=== PATIENT | male | born 2000 | race Two or more races ===

== ENCOUNTER 2024-11-05 17:17 | Inpatient (IN) | payer MEDICAID, OTHER ==
[~2024-11-05] VITALS: Ht 165.1 cm; Wt 101.0 kg
[2024-11-05 18:10] LABS: Hematocrit 46.3 % (41.0-53.0); Hemoglobin 16.2 g/dL (13.5-17.5); Mean Corpuscular Hemoglobin 30.1 pg (28.0-32.0); Mean Corpuscular Volume 86.1 fL (80.0-100.0); Nucleated Red Blood Cells % 0.0 %
[2024-11-05 18:24] LABS: Urine Protein, UAD Negative (Negative)
[2024-11-05 18:25] LABS: Chloride 102 mmol/L (98-107); Potassium 3.9 mmol/L (3.5-5.1); Sodium 137 mmol/L (136-145)
[2024-11-05 18:26] LABS: Anion Gap 13 (5-15); Calcium 9.3 mg/dL (8.7-10.4); Carbon Dioxide 22 mmol/L (20-31)
[2024-11-05 18:31] LABS: BUN/Creatinine Ratio 9.5 (10.0-20.0)
[2024-11-05 18:32] LABS: Blood Urea Nitrogen 7 mg/dL (9-23); Glucose 274 mg/dL (74-106)
--- NOTE | 2024-11-05 18:52 | ED.PDOC ---
GI ASSESSMENT HPI Comments This is a 24 year-old male who presents to the ED with a chief complaint of RLQ abdominal pain with associated nausea, mild dysuria and constipation as of today. Patient reports abdominal pain as "sharp", intermittent, with an increase of abdominal pain upon movement and with urination. Patient otherwise denies further associated symptoms of fever, hematuria, frequency, urgency, blood streaked stool, or emesis. Patient has no further complaints or modifying factors at this time. Chief Complaint: Flank Pain Time Seen by MD: 18:46 Reviewed Notes: Nurses Notes, Medications, Allergies Allergies: Coded Allergies: NO KNOWN ALLERGIES (Unverified , 11/05/24) Information Source: Patient Mode of Arrival: Ambulatory Timing: Hours Duration: Since onset Prehospital treatment: None Severity: Moderate Pain Location: RLQ Associated sign and symptoms: Nausea, Diarrhea, Constipation, Abdominal Pain Past Medical History PAST MEDICAL HISTORY: DM Surgical History: Denies all surgeries Family History Family History: Reviewed,noncontributory to illness, No family hx of Cancer, No family hx of DM, No family hx of Heart alta, No family hx of HTN, No family hx ofKidney alta, No family hx of Liver alta, No family hx of Lung alta, No family hx of Stroke Social History Smoker: Non-Smoker Alcohol: Denies ETOH Use Drugs: Denies Drug Use Lives In: Home Constitutional: denies: chills, diaphoresis, fatigue, fever, malaise, sweats, weakness, others EENTM: denies: blurred vision, double vision, ear bleeding, ear discharge, ear drainage, ear pain, ear ringing, eye pain, eye redness, hearing loss, mouth pain, mouth swelling, nasal discharge, nose bleeding, nose congestion, nose pain, photophobia, tearing, throat pain, throat swelling, voice changes, others Respiratory: denies: cough, hemoptysis, orthopnea, SOB at rest, shortness of breath, SOB with excertion, stridor, wheezing, others Cardiovascular: denies: chest pain, dizzy spells, diaphoresis, Dyspnea on exertion, edema, irregular heart beat, left arm pain, lightheadedness, palpitations, PND, syncope, others Gastrointestinal: reports: abdominal pain, constipated, diarrhea, nausea; denies: abdomen distended, blood streaked bowels, dysphagia, difficulty swallowing, hematemesis, melena, poor appetite, poor fluid intake, rectal bleeding, rectal pain, vomiting, others Genitourinary: denies: burning, dysuria, flank pain, frequency, hematuria, incontinence, penile discharge, penile sore, pain, testicle pain, testicle swelling, urgency, others Neurological: denies: dizziness, fainting, headache, left sided numbness, left sided weakness, numbness, paresthesia, pre-existing deficit, right sided numbness, right sided weakness, seizure, speech problems, tingling, tremors, weakness, others Musculoskeletal: denies: back pain, gout, joint pain, joint swelling, muscle pain, muscle stiffness, neck pain, others Integumetry: denies: bruises, change in color, change in hair/nails, dryness, laceration, lesions, lumps, rash, wounds, others Allergic/Immunocompromised: denies: Difficulty Healing, Frequent Infections, Hives, Itching, others Hematologic/Lymphatic: denies: anemia, blood clots, easy bleeding, easy bruising, swollen glands, others Endocrine: denies: excessive hunger, excessive sweating, excessive thirst, excessive urination, flushing, intolerance to cold, intolerance to heat, unexplained weight gain, unexplained weight loss, others Psychiatric: denies: anxiety, bipolar disorder, depression, hopeless, panic disorder, schizophrenia, sleepless, suicidal, others All Other Systems: Reviewed and Negative Physical Exam General Appearance: Mild Distress, Obese HEENT: Other (Pupils and face symmetric. Moist mucous membranes.) Neck: Full Range of Motion, Normal Inspection Respiratory: Lungs Clear, No Accessory Muscle Use, No Respiratory Distress, Normal Breath Sounds Cardiovascular: No Edema, No JVD, Regular Rate/Rhythm Breast Exam: Deferred Gastrointestinal: RLQ, Soft, Tenderness Genitalia: Deferred Pelvic: Deferred Rectal: Deferred Extremities: Normal inspection, Normal range of motion, Non-tender, No pedal ed douglas Neurologic: Alert (Oriented x4), Normal Affect, Normal Mood, Other (Ambulatory) Cerebellar Function: NOT DONE Reflexes: NOT DONE Skin: Dry, Normal Color, Warm Lymphatic: NOT DONE Was a procedure done? Was a procedure done?: No GI differential Dx Differential Diagnosis: Appendicitis, Diverticular disease, Gastritis/PUD, Gastroenteritis, Inflammatory BD, UTI, Urolithiasis, Electrolyte Imbalance, Food Poisoning, Bacterial, Viral, Kidney Stone, Other (Epiploic appendagitis, among others) X-Ray, Labs, Meds, VS Vital Signs Date Time Temp Pulse Resp B/P (MAP) Pulse Ox O2 Delivery O2 Flow Rate FiO2 11/05/24 17:19 99.6 123 18 143/90 96 99.6 Lab Test 11/05/24 17:58 11/05/24 17:40 Range/Units White Blood Count 13.9 H 4.4-10.8 10^3/uL Red Blood Count 5.38 4.5-5.90 10^6/uL Hemoglobin 16.2 13.5-17.5 g/dL Hematocrit 46.3 41.0-53.0 % Mean Corpuscular Volume 86.1 80.0-100.0 fL Mean Corpuscular Hemoglobin 30.1 28.0-32.0 pg Mean Corpuscular Hemoglobin Concent 35.0 32.0-36.0 g/dL Red Cell Distribution Width 13.6 11.8-14.3 % Platelet Count 236 140-450 10^3/uL Mean Platelet Volume 9.2 6.9-10.8 fL Neutrophils (%) (Auto) 83.7 H 37.0-80.0 % Lymphocytes (%) (Auto) 9.7 L 10.0-50.0 % Monocytes (%) (Auto) 6.1 0.0-12.0 % Eosinophils (%) (Auto) 0.1 0.0-7.0 % Basophils (%) (Auto) 0.4 0.0-2.0 % Neutrophils # (Auto) 11.7 H 1.6-8.6 10 ^3/uL Lymphocytes # (Auto) 1.4 0.4-5.4 10 ^3/uL Monocytes # (Auto) 0.8 0-1.3 10 ^3/uL Eosinophils # (Auto) 0 0-0.8 10 ^3/uL Basophils # (Auto) 0.1 0-0.2 10 ^3/uL Nucleated Red Blood Cells 0.0 % Sodium Level 137 136-145 mmol/L Potassium Level 3.9 3.5-5.1 mmol/L Chloride Level 102 98-107 mmol/L Carbon Dioxide Level 22 20-31 mmol/L Anion Gap 13 5-15 Blood Urea Nitrogen 7 L 9-23 mg/dL Creatinine 0.74 0.700-1.30 mg/dL Glomerular Filtration Rate Calc 128 >90 mL/min BUN/Creatinine Ratio 9.5 L 10.0-20.0 Serum Glucose 274 H 74-106 mg/dL Calcium Level 9.3 8.7-10.4 mg/dL Urine Color Light-yellow Yellow Urine Clarity Clear Clear Urine pH 5.5 5.0-9.0 Urine Specific [place] 1.044 H 1.001-1.035 Urine Protein Negative Negative Urine Ketones 3+ H Negative Urine Blood Negative Negative /uL Urine Nitrite Negative Negative Urine Bilirubin Negative Negative Urine Urobilinogen Normal Negative mg/dL Urine Leukocyte Esterase Negative Negative /uL Urine RBC 5 0 - 3 /hpf Urine Microscopic WBC 1 0-3 /HPF Urine Squamous Epithelial Cells Few <5 /hpf Urine Bacteria None seen None Seen /hpf Urine Glucose 4+ H Normal mg/dL ORDERING PHYSICIAN: LJ SAMUELS MD PROCEDURE(s): ABPL - CT AB PEL WO CON-NO ORAL OR IV REASON: L flank pain rad to LLQ ORDER NUMBER(s): [id number], ACCESSION NUMBER(s): [id number] ADDENDUM ADDENDUM # 1 IMPRESSION: 1. The inflammatory changes in the right lower quadrant may be consistent with acute appendicitis. There are no findings of free air or free fluid. The appendix is not visualized at this time. Please correlate with clinical setting. ORIGINAL REPORT Exam: CT CT AB PEL WO CON-NO ORAL OR IV History: L flank pain rad to LLQ Comparison Study: None TECHNIQUE: Multidetector CT of the abdomen was performed from lung bases to pubic symphysis. Imaging was performed without IV contrast. Axial, coronal and sagittal multiplanar reformats were obtained from the axial data set by the technologist. Radiation Dose Information: CT Dose: CTDI volume is 21.16 mGy. Dose-length product is 1239.55 mGy*cm FINDINGS: Evaluation of solid organs is limited due to lack of intravenous contrast use. Findings: Lung Bases: No acute or significant lung base finding. Normal heart size. No pleural or pericardial effusion. Liver: The liver is normal in size. No focal lesions. Gallbladder and Biliary Tree: Unremarkable Spleen: Unremarkable Pancreas: The pancreas is grossly normal in appearance. Adrenal Glands: Unremarkable Kidneys: Kidneys are grossly normal without calculi or hydronephrosis. Bladder: Grossly unremarkable for degree of distention. Bowel: The stomach is grossly normal in appearance. Small bowel and colon are normal in caliber and distribution. There appears to be inflammatory stranding in the mesenteric fat just to the right of midline series 601 images 47- 52. Series 602 images 39- series 2 images 58- 69. The appendix is not visualized; however, no secondary findings of acute appendicitis identified. Ascites: Absent Lymphadenopathy: No mesenteric, retroperitoneal or periportal lymphadenopathy. Abdominal Wall and Mesentery: Unremarkable. Vasculature: The visualized abdominal aorta is normal in size and caliber. Evaluation of abdominal and pelvic vessels is limited due to lack of intravenous contrast. Pelvic Organs: Unremarkable Musculoskeletal: No aggressive focal bony lesions, acute fractures or dislocation. Soft tissues: Unremarkable IMPRESSION: 1. No nephrolithiasis or hydronephrosis. 2. Inflammatory changes just to the right of midline in the pelvis, refer to following series of images: series 601 images 47- 5Series 602 images 39- series 2 images 58- 69. Since these findings are not related patient's side of symptomatology significance is uncertain. A follow-up studies recommended. This could represent a epiploic appendagitis. 3. Bladder contains urine but no calculi. There is bladder wall thickening benja cially superiorly which point measures 12-13 mm in thickness. Bladder wall also measures 12-13 mm on the right. Overall bladder dimensions are 8.4 x 7.2 by 9.2 cm in transverse dimension. Bladder wall thickening may be secondary to or urinary distention infection. Neoplasm is also a possibility although unlikely in this age group. Please correlate with urinalysis. Radiation optimization: All CT scans at this facility use at least one of these dose optimization techniques: automated exposure control mA and/or kV adjustment per patient size (includes targeted exams where dose is matched to clinical indication) or iterative reconstruction. X-Ray, Labs, Meds, VS Comment 24-year-old male with a history of diabetes complaining of right lower quadrant pain, nausea and dysuria Vitals remarkable for temperature 99.6, heart rate 123, BP 143/90 Exam remarkable for right lower quadrant tenderness to percussion and palpation Rhythm strip independently interpreted by me: Sinus tach, rate 123, no ectopy. CT abdomen and pelvis IMPRESSION: 1. The inflammatory changes in the right lower quadrant may be consistent with acute appendicitis. There are no findings of free air or free fluid. The appendix is not visualized at this time. Please correlate with clinical setting. CBC remarkable for WBC 13.9, basic metabolic panel remarkable for glucose 274, UA 3+ ketones and 4+ glucose, otherwise unremarkable Patient treated with the following in the ED: 2 L 0.9 normal saline IV bolus, morphine 4 mg IV, Zofran 4 mg IV, Zosyn 4.5 g IV, placed NPO On re-evaluation, pain has improved. Vitals were stable. Case was discussed with Dr. Giles, who will consult. Plan is to admit the patient for IV antibiotics and surgical evaluation of possible early appendicitis. Images Reviewed?: Images reviewed and evaluated by me Time of 1ST Reevaluation: 19:35 Reevaluation 1ST: Unchanged Patient Education/Counseling: Diagnosis, Treatment, Need For Follow Up Family Education/Counseling: No Family Present Medical Screening: No EMC Exist At This Time SEPSIS Sepsis Screen Date sepsis recognized/suspect: Nov 05, 2024 Time Sepsis recognized/suspect: 9 Recent Procedure: No On Antibiotic Therapy: No Respiratory Rate >20: No Heart Rate >90: Yes Temp<36 C (96.8 F) or >38.3 C: No SBP <90 or MAP <65 mmHG: No New Acute Mental Status Change: No Is the patient on CPAP, BIPAP,: No SEPSIS EXCLUSION NOTE: Sepsis Exclusion Note: Patient presents with SIRS criteria, but the SIRS response is attributed to [pain ], not sepsis. Sepsis bundle is not initiated at this time, due to this reason. Further management will focus on the treatment of the above condition (s). Physician Orders Ct Ab Pel Wo Con-No Oral Or Iv (11/05/24 17:48) Sodium Chloride 0.9% (11/05/24 21:00) Piperacillin-Tazo 4.5gm (Zosyn 4.5gm/100 (11/05/24 21:00) Npo (Nothing By Mouth) Diet (11/06/24 Breakfast) Vital Signs Date Time Temp Pulse Resp B/P (MAP) Pulse Ox O2 Delivery O2 Flow Rate FiO2 11/05/24 17:19 99.6 123 18 143/90 96 99.6 Laboratory Tests Test 11/05/24 17:58 White Blood Count 13.9 10^3/uL (4.4-10.8) H Departure 1 Departure Time of Disposition: 21:00 Impression: Primary Impression: Right lower quadrant abdominal pain Disposition: ADMITTED INPATIENT Admit to: Med Surg Condition: Guarded Critical Care Note Critical Care Time?: No Stability Stability form required: No Heart Score Heart Score: Heart Score Response (Comments) Value History N/A 0 EKG N/A 0 Age N/A 0 Risk Factors N/A 0 Troponin N/A 0 Total 0 I personally scribed for LJ SAMUELS MD ([email or web address]) on 11/05/24 at 18:52. Electronically submitted by Maki Haider ([employer]). I personally scribed for LJ SAMUELS MD ([email or web address]) on 11/05/24 at 18:53. Electronically submitted by Maki Haider ([employer]). I personally scribed for LJ SAMUELS MD ([email or web address]) on 11/05/24 at 19:27. Electronically submitted by Maki aHider ([email or web address]). LJ SAMUELS MD Nov 05, 2024 18:52
--- NOTE | 2024-11-05 19:06 | DVH ---
Exam: CT CT AB PEL WO CON-NO ORAL OR IV History: L flank pain rad to LLQ Comparison Study: None TECHNIQUE: Multidetector CT of the abdomen was performed from lung bases to pubic symphysis. Imaging was performed without IV contrast. Axial, coronal and sagittal multiplanar reformats were obtained fr om the axial data set by the technologist. Radiation Dose Information: CT Dose: CTDI volume is 21.16 mGy. Dose-length product is 1239.55 mGy*cm FINDINGS: Evaluation of solid organs is limited due to lack of intravenous contrast use. Findings: Lung Bases: No acute or significant lung base finding. Normal heart size. No pleural or pericardial effusion. Liver: The liver is normal in size. No focal lesions. Gallbladder and Biliary Tree: Unremarkable Spleen: Unremarkable Pancreas: The pancreas is grossly normal in appearance. Adrenal Glands: Unremarkable Kidneys: Kidneys are grossly normal without calculi or hydronephrosis. Bladder: Grossly unremarkable for degree of distention. Bowel: The stomach is grossly normal in appearance. Small bowel and colon are normal in caliber and d istribution. There appears to be inflammatory stranding in the mesenteric fat just to the right of mi dline series 601 images 47- 52. Series 602 images 39- series 2 images 58- 69. The appendix is not vis ualized; however, no secondary findings of acute appendicitis identified. Ascites: Absent Lymphadenopathy: No mesenteric, retroperitoneal or periportal lymphadenopathy. Abdominal Wall and Mesentery: Unremarkable. Vasculature: The visualized abdominal aorta is normal in size and caliber. Evaluation of abdominal a nd pelvic vessels is limited due to lack of intravenous contrast. Pelvic Organs: Unremarkable Musculoskeletal: No aggressive focal bony lesions, acute fractures or dislocation. Soft tissues: Unremarkable IMPRESSION: 1. No nephrolithiasis or hydronephrosis. 2. Inflammatory changes just to the right of midline in the pelvis, refer to following series of imag es: series 601 images 47- 5Series 602 images 39- series 2 images 58- 69. Since these findings are no t related patient's side of symptomatology significance is uncertain. A follow-up studies recommended . This could represent a epiploic appendagitis. 3. Bladder contains urine but no calculi. There is bladder wall thickening especially superiorly whic h point measures 12-13 mm in thickness. Bladder wall also measures 12-13 mm on the right. Overall bl adder dimensions are 8.4 x 7.2 by 9.2 cm in transverse dimension. Bladder wall thickening may be seco ndary to or urinary distention infection. Neoplasm is also a possibility although unlikely in this ag e group. Please correlate with urinalysis. Radiation optimization: All CT scans at this facility use at least one of these dose optimization segundo hniques: automated exposure control mA and/or kV adjustment per patient size (includes targeted exam s where dose is matched to clinical indication) or iterative reconstruction.
[2024-11-06] MEDS: ONDANSETRON HCL 4 MG/2 ML VIAL IV ONE (00:15)
[2024-11-06] MEDS: PIPERACILLIN-TAZO 4.5GM 100 ML IV ONE (00:15)
[2024-11-06] MEDS: SODIUM CHLORIDE 0.9% 2,000 ML IV ONE (00:15)
[2024-11-06] MEDS: MORPHINE SULFATE 4 MG/ML SYR/VIAL IV ONE (00:20)
--- NOTE | 2024-11-06 07:44 | DVHINCON2 ---
Date of service: Nov 06, 2024 History of Present Illness 24-year-old obese male with diabetes who has been noncompliant admitted secondary to right lower quadrant abdominal pain starting yesterday morning. Patient denies fevers, chills, nausea or vomiting. Patient received a dose of antibiotics overnight and currently reports that his pain is better than yesterday rating it 5/10 in intensity. Past Medical History Obesity. Diabetes. Past Surgical History None Family History Noncontributory Social History Occasional alcohol and tobacco Allergies: Coded Allergies: NO KNOWN ALLERGIES (Unverified , 11/05/24) Vital Signs Vital Signs Date Time Temp Pulse Resp B/P (MAP) Pulse Ox O2 Delivery O2 Flow Rate FiO2 11/06/24 00:24 97.6 116 22 116/74 (88) 100 97.6 Physical Exam GEN: Obese male in no acute distress. Alert. HEENT: Normocephalic atraumatic. Moist mucous membranes. Anicteric sclerae. CV: RRR Respiratory: CTAB ABD: Obese abdomen with suprapubic and right lower quadrant tenderness to palpation with minimal guarding. Nondistended. CT of the abdomen and pelvis: Inflammatory changes just to the right of the midline in the pelvis. Labs/Diagnostic Data Labs Test 11/05/24 17:58 11/05/24 17:40 Range/Units White Blood Count 13.9 H 4.4-10.8 10^3/uL Red Blood Count 5.38 4.5-5.90 10^6/uL Hemoglobin 16.2 13.5-17.5 g/dL Hematocrit 46.3 41.0-53.0 % Mean Corpuscular Volume 86.1 80.0-100.0 fL Mean Corpuscular Hemoglobin 30.1 28.0-32.0 pg Mean Corpuscular Hemoglobin Concent 35.0 32.0-36.0 g/dL Red Cell Distribution Width 13.6 11.8-14.3 % Platelet Count 236 140-450 10^3/uL Mean Platelet Volume 9.2 6.9-10.8 fL Neutrophils (%) (Auto) 83.7 H 37.0-80.0 % Lymphocytes (%) (Auto) 9.7 L 10.0-50.0 % Monocytes (%) (Auto) 6.1 0.0-12.0 % Eosinophils (%) (Auto) 0.1 0.0-7.0 % Basophils (%) (Auto) 0.4 0.0-2.0 % Neutrophils # (Auto) 11.7 H 1.6-8.6 10 ^3/uL Lymphocytes # (Auto) 1.4 0.4-5.4 10 ^3/uL Monocytes # (Auto) 0.8 0-1.3 10 ^3/uL Eosinophils # (Auto) 0 0-0.8 10 ^3/uL Basophils # (Auto) 0.1 0-0.2 10 ^3/uL Nucleated Red Blood Cells 0.0 % Sodium Level 137 136-145 mmol/L Potassium Level 3.9 3.5-5.1 mmol/L Chloride Level 102 98-107 mmol/L Carbon Dioxide Level 22 20-31 mmol/L Anion Gap 13 5-15 Blood Urea Nitrogen 7 L 9-23 mg/dL Creatinine 0.74 0.700-1.30 mg/dL Glomerular Filtration Rate Calc 128 >90 mL/min BUN/Creatinine Ratio 9.5 L 10.0-20.0 Serum Glucose 274 H 74-106 mg/dL Calcium Level 9.3 8.7-10.4 mg/dL Urine Color Light-yellow Yellow Urine Clarity Clear Clear Urine pH 5.5 5.0-9.0 Urine Specific [place] 1.044 H 1.001-1.035 Urine Protein Negative Negative Urine Ketones 3+ H Negative Urine Blood Negative Negative /uL Urine Nitrite Negative Negative Urine Bilirubin Negative Negative Urine Urobilinogen Normal Negative mg/dL Urine Leukocyte Esterase Negative Negative /uL Urine RBC 5 0 - 3 /hpf Urine Microscopic WBC 1 0-3 /HPF Urine Squamous Epithelial Cells Few <5 /hpf Urine Bacteria None seen None Seen /hpf Urine Glucose 4+ H Normal mg/dL Assessment 1. Right lower quadrant pain possible early appendicitis versus epiploic appendagitis Plan/Recommendation 1. Spoke to the patient regarding in his diagnosis possible appendicitis. Offered him surgery versus antibiotic treatment. At this point he wants to decide prior to making a decision. We will continue the IV antiemetics meanwhile as patient appears to be clinically stable. Plan discussed with: Patient RAMOS ESTRELLA MD Nov 06, 2024 07:44
--- NOTE | 2024-11-06 08:13 | DVHHP2 ---
History of Present Illness Reason for Visit: Abdominal pain History of Present Illness Finn Matthews is a 24-year-old male with past medical history of diabetes, but has not been taking any medications for about 2 years. Patient came to the hospital for abdominal pain. Patient states he was awoken yesterday about 0530 due to RLQ abdominal pain. Patient states the pain continued throughout the day with no improvement, with associated nausea prompting him to come to the hospital. Endocrine: Diabetes Past Surgical History: None Smoke: No ALCOHOL: rare Drugs: None Lives: with Family Domestic Violence: Neg Review of Systems Constitutional: No: Fever, Chills, Sweats, Weakness, Malaise, Other Eyes: No: Pain, Vision change, Conjunctivae inflammation, Eyelid inflammation, Other, Redness ENT: No: Ear pain, Ear discharge, Nose pain, Nose discharge, Nose congestion, Mouth pain, Mouth swelling, Throat pain, Throat swelling, Other Respiratory: No: Cough, Dry, Shortness of breath, SOB with excertion, Wheezing, Hemoptysis, Pleuritic Pain, Sputum, Wheezing, Other Cardiovascular: No: Chest Pain, Palpitations, Orthopnea, Paroxysmal Noc. Dyspnea, Edema, Lt Headedness, Other Gastrointestinal: Nausea, Abdominal Pain (RLQ); No: Vomiting, Diarrhea, Constipation, Melena, Hematochezia, Other Genitourinary: No Dysuria, No Frequency, No Incontinence, No Hematuria, No Retention, No Other Musculoskeletal: No: other, neck pain, shoulder pain, arm pain, back pain, hand pain, leg pain, foot pain Skin: No: Rash, Lesions, Jaundice, Bruising, Other Neurological: No: Weakness, Numbness, Incoordination, Change in speech, Confusion, Seizures, Other Allergies: Coded Allergies: NO KNOWN ALLERGIES (Unverified , 11/05/24) Exam Vital Signs Vital Signs Date Time Temp Pulse Resp B/P (MAP) Pulse Ox O2 Delivery O2 Flow Rate FiO2 11/06/24 00:24 97.6 116 22 116/74 (88) 100 97.6 General Appearance: Alert, Oriented X3, Cooperative, mild distress HEENT: Atraumatic, PERRLA Respiratory: Clear to auscultation, Normal air movement Cardiovascular: Regular rate, Normal S1, Normal S2 Abdominal: Normal bowel sounds, Soft, Other (RLQ pain) Extremities: No clubbing, No cyanosis, No edema, Normal pulses, No tenderness/swelling Skin: No rashes, No breakdown, No significant lesion Neuro: Normal gait, Normal speech, Strength at 5/5 X4 ext, Normal tone Psych/Mental Status: Mental status NL, Mood NL Labs/Xrays Labs Test 11/05/24 17:58 11/05/24 17:40 Range/Units White Blood Count 13.9 H 4.4-10.8 10^3/uL Red Blood Count 5.38 4.5-5.90 10^6/uL Hemoglobin 16.2 13.5-17.5 g/dL Hematocrit 46.3 41.0-53.0 % Mean Corpuscular Volume 86.1 80.0-100.0 fL Mean Corpuscular Hemoglobin 30.1 28.0-32.0 pg Mean Corpuscular Hemoglobin Concent 35.0 32.0-36.0 g/dL Red Cell Distribution Width 13.6 11.8-14.3 % Platelet Count 236 140-450 10^3/uL Mean Platelet Volume 9.2 6.9-10.8 fL Neutrophils (%) (Auto) 83.7 H 37.0-80.0 % Lymphocytes (%) (Auto) 9.7 L 10.0-50.0 % Monocytes (%) (Auto) 6.1 0.0-12.0 % Eosinophils (%) (Auto) 0.1 0.0-7.0 % Basophils (%) (Auto) 0.4 0.0-2.0 % Neutrophils # (Auto) 11.7 H 1.6-8.6 10 ^3/uL Lymphocytes # (Auto) 1.4 0.4-5.4 10 ^3/uL Monocytes # (Auto) 0.8 0-1.3 10 ^3/uL Eosinophils # (Auto) 0 0-0.8 10 ^3/uL Basophils # (Auto) 0.1 0-0.2 10 ^3/uL Nucleated Red Blood Cells 0.0 % Sodium Level 137 136-145 mmol/L Potassium Level 3.9 3.5-5.1 mmol/L Chloride Level 102 98-107 mmol/L Carbon Dioxide Level 22 20-31 mmol/L Anion Gap 13 5-15 Blood Urea Nitrogen 7 L 9-23 mg/dL Creatinine 0.74 0.700-1.30 mg/dL Glomerular Filtration Rate Calc 128 >90 mL/min BUN/Creatinine Ratio 9.5 L 10.0-20.0 Serum Glucose 274 H 74-106 mg/dL Calcium Level 9.3 8.7-10.4 mg/dL Urine Color Light-yellow Yellow Urine Clarity Clear Clear Urine pH 5.5 5.0-9.0 Urine Specific [place] 1.044 H 1.001-1.035 Urine Protein Negative Negative Urine Ketones 3+ H Negative Urine Blood Negative Negative /uL Urine Nitrite Negative Negative Urine Bilirubin Negative Negative Urine Urobilinogen Normal Negative mg/dL Urine Leukocyte Esterase Negative Negative /uL Urine RBC 5 0 - 3 /hpf Urine Microscopic WBC 1 0-3 /HPF Urine Squamous Epithelial Cells Few <5 /hpf Urine Bacteria None seen None Seen /hpf Urine Glucose 4+ H Normal mg/dL ADDENDUM # 1 IMPRESSION: 1. The inflammatory changes in the right lower quadrant may be consistent with acute appendicitis. There are no findings of free air or free fluid. The appendix is not visualized at this time. Please correlate with clinical setting. ORIGINAL REPORT Exam: CT CT AB PEL WO CON-NO ORAL OR IV FINDINGS: Evaluation of solid organs is limited due to lack of intravenous contrast use. Findings: Lung Bases: No acute or significant lung base finding. Normal heart size. No pleural or pericardial effusion. Liver: The liver is normal in size. No focal lesions. Gallbladder and Biliary Tree: Unremarkable Spleen: Unremarkable Pancreas: The pancreas is grossly normal in appearance. Adrenal Glands: Unremarkable Kidneys: Kidneys are grossly normal without calculi or hydronephrosis. Bladder: Grossly unremarkable for degree of distention. Bowel: The stomach is grossly normal in appearance. Small bowel and colon are normal in caliber and distribution. There appears to be inflammatory stranding in the mesenteric fat just to the right of midline series 601 images 47- 52. Series 602 images 39- series 2 images 58- 69. The appendix is not visualized; however, no secondary findings of acute appendicitis identified. Ascites: Absent Lymphadenopathy: No mesenteric, retroperitoneal or periportal lymphadenopathy. Abdominal Wall and Mesentery: Unremarkable. Vasculature: The visualized abdominal aorta is normal in size and caliber. Evaluation of abdominal and pelvic vessels is limited due to lack of intravenous contrast. Pelvic Organs: Unremarkable Musculoskeletal: No aggressive focal bony lesions, acute fractures or dislocation. Soft tissues: Unremarkable IMPRESSION: 1. No nephrolithiasis or hydronephrosis. 2. Inflammatory changes just to the right of midline in the pelvis, refer to following series of images: series 601 images 47- 5Series 602 images 39- series 2 images 58- 69. Since these findings are not related patient's side of symptom atology significance is uncertain. A follow-up studies recommended. This could represent a epiploic appendagitis. 3. Bladder contains urine but no calculi. There is bladder wall thickening especially superiorly which point measures 12-13 mm in thickness. Bladder wall also measures 12-13 mm on the right. Overall bladder dimensions are 8.4 x 7.2 by 9.2 cm in transverse dimension. Bladder wall thickening may be secondary to or urinary distention infection. Neoplasm is also a possibility although unlikely in this age group. Please correlate with urinalysis. SEPSIS Sepsis Screen Date sepsis recognized/suspect: Nov 05, 2024 Time Sepsis recognized/suspect: 1718 Recent Procedure: No On Antibiotic Therapy: No Respiratory Rate >20: No Heart Rate >90: Yes Temp<36 C (96.8 F) or >38.3 C: No SBP <90 or MAP <65 mmHG: No New Acute Mental Status Change: No Is the patient on CPAP, BIPAP,: No Physician Orders Prothrombin Time W/ Inr (11/06/24 07:34) Admit (11/06/24 08:10) Code Status (11/06/24 08:10) Hydrocodone-Acet 5/325mg Tab ([place] 5/32 (11/06/24 08:15) Ondansetron Hcl (Zofran) (11/06/24 08:15) Docusate Sodium Capsule (Colace Capsule) (11/06/24 08:15) Complete Blood Count (11/07/24 04:00) Comprehensive Metabolic Panel (11/07/24 04:00) Condition: Serious (11/06/24 08:10) Acetaminophen Tablet (Tylenol Tablet) (11/06/24 08:15) Morphine Sulfate Injection (11/06/24 08:15) Vital Signs Date Time Temp Pulse Resp B/P (MAP) Pulse Ox O2 Delivery O2 Flow Rate FiO2 11/06/24 00:24 97.6 116 22 116/74 (88) 100 97.6 11/06/24 00:20 114 20 127/86 Medications Medications Dose Ordered Sig/Raj Route Start Time Stop Time Status Last Admin Dose Admin Morphine Sulfate 4 mg ONCE ONCE IV 11/05/24 21:00 11/05/24 21:01 DC 11/06/24 00:20 4 MG Ondansetron HCl 4 mg ONCE ONCE IV 11/05/24 21:00 11/05/24 21:01 DC 11/06/24 00:15 4 MG Piperacillin Sod/ Tazobactam Sod 100 ml @ 100 mls/hr ONCE ONCE IV 11/05/24 21:00 11/05/24 21:59 DC 11/06/24 00:15 100 MLS/HR Sodium Chloride 2,000 ml @ 1,000 mls/hr Q2H ONCE IV 11/05/24 21:00 11/05/24 22:59 DC 11/06/24 00:15 1,000 MLS/HR Assessment/Plan Assessment/Plan Assessment: Possible acute Appendicitis, Possible epiploic appendagitis, Hyperglycemia, Cystitis, Uncontrolled diabetes, Obesity, Plan: Admit to Med-Surg, Surgical consult, IV antibiotics, IV hydration, NPO, A1c, Chest X-ray, Accu checks with sliding scale coverage, Plan discussed with: Patient My Orders Orders - PABLO CHAPMAN VEGETABLE TRIMMER Procedure Category Date Status Time Admit ADMIT 11/06/24 Transmitted 08:10 Code Status CODE 11/06/24 Transmitted 08:10 Hydrocodone-Acet PHA 11/06/24 Transmitted 5/325mg Tab ([place] 08:15 Ondansetron Hcl PHA 11/06/24 Transmitted (Zofran) 08:15 Docusate Sodium PHA 11/06/24 Transmitted Capsule (Colace 08:15 Complete Blood Count LAB 11/07/24 Verified 04:00 Comprehensive LAB 11/07/24 Verified Metabolic Panel 04:00 Condition: Serious RENU 11/06/24 Transmitted 08:10 Acetaminophen Tablet PHA 11/06/24 Transmitted (Tylenol Tablet) 08:15 Morphine Sulfate PHA 11/06/24 Transmitted Injection 08:15 Date of Service: Nov 06, 2024 Billing Provider: PABLO CHAPMAN Common Visit Codes: [id number] INP/OBS CARE (MOD) PABLO CHAPMAN Nov 06, 2024 08:13
[2024-11-06] MEDS: SODIUM CHLORIDE 0.9% 1,000 ML IV SCH (08:15)
[2024-11-06 08:40] LABS: INR 1.13 (0.9-1.15); Prothrombin Time 11.8 sec (9.3-11.8)
--- NOTE | 2024-11-06 11:25 | DVH ---
EXAM: XY CHEST XRAY 1 VIEW Indication: Pain Technique: Single frontal view of the chest was obtained Comparison: None FINDINGS: Lines and Tubes: None Lungs: No focal consolidation. Pleura: No effusion. No pneumothorax. Cardiomediastinal contours: Unremarkable Bones: No acute osseous abnormality. IMPRESSION: No acute cardiopulmonary disease.
[2024-11-06] MEDS: HYDROcodone-ACET 5/325MG TAB PO PRN (11:28)
[2024-11-06] MEDS ORDERED: DEXTROSE (50%) 50ML SYRG IV PRN (11:45)
--- NOTE | 2024-11-06 11:48 | DVHPN2 ---
Progress Note Date Seen: Nov 06, 2024 Medical Necessity Reason Pt with a Central, PICC or Fol: No Subjective Patient reports: No new complaints Review of Systems: HEENT:Normal, CVS:Normal, RESPIRATORY:Normal, GI:Normal, :Normal, MSK:Normal, NEURO:Normal Objective vital signs Vital Sign Date Time Temp Pulse Resp B/P (MAP) Pulse Ox O2 Delivery O2 Flow Rate FiO2 11/06/24 00:24 97.6 116 22 116/74 (88) 100 97.6 medications Current Medications Medications Dose Ordered Sig/Raj Route Start Time Stop Time Status Last Admin Dose Admin Acetaminophen/ Hydrocodone Bitart 1 tab Q4HP PRN PO 11/06/24 08:15 11/06/24 11:28 1 TAB Ondansetron HCl 4 mg Q4HP PRN IV 11/06/24 08:15 Docusate Sodium 100 mg BIDPRN PRN PO 11/06/24 08:15 Acetaminophen 650 mg Q6HP PRN PO 11/06/24 08:15 Morphine Sulfate 2 mg Q4HPRN PRN IV 11/06/24 08:15 Metronidazole 100 ml @ 100 mls/hr Q8HR IV 11/06/24 14:00 Ceftriaxone Sodium 50 ml @ 100 mls/hr DAILY@09 IV 11/06/24 09:00 Sodium Chloride 1,000 ml @ 100 mls/hr Q10H IV 11/06/24 08:15 Examination: GENERAL:Normal, HEENT:Normal, NECK:Normal, LUNGS:Normal, CVS:Normal, ABDOMEN:Normal, ABDOMEN:Abnormal (right lower abd pain), MSK:Normal, SKIN:Normal, NEURO:Normal, :Normal laboratory and microbiology Laboratory Tests 11/05/24 17:58 Test 11/05/24 17:58 Range/Units Serum Glucose 274 H 74-106 mg/dL Problem List/Assessment/Plan Problem List/Assessment/Plan #1 ? acute appy with sepsis: ivf, iv antibiotics, surg eval #2 dm: uncontrolled, ssi #3 obesity Plan discussed with: Patient Date of Service: Nov 06, 2024 Billing Provider: MARELY CAVAZOS MD Common Visit Codes: [id number] INP/OBS CARE(HIGH) MARELY CAVAZOS MD Nov 06, 2024 11:48
[2024-11-06] MEDS: ACCU-CHEK COMFORT CURVE STRIP VI SCH (12:00)
[2024-11-06] MEDS: InsuLIN REG 1unit/0.01ml Soln (100units/ml) SC SCH (12:49)
--- NOTE | 2024-11-06 13:50 | DVH ---
INDICATION: ACUTE APPY TECHNIQUE: Graded compression technique along with Multiple real-time sonographic images were obtain ed for evaluation of the right lower quadrant. FINDINGS: The appendix was not visualized. No free fluid or lymph nodes are seen on this exam. IMPRESSION: 1.Nonvisualization of the appendix, thus cannot exclude appendicitis.
[2024-11-06 13:51] VITALS: BP 134/82; PULSE 107; RESP 18; TEMP 98.4; O2SAT 98
[2024-11-06 17:00] VITALS: BP 132/84; PULSE 95; RESP 17; TEMP 99; O2SAT 96
[2024-11-06 21:00] VITALS: BP 125/77; PULSE 108; RESP 20; TEMP 99.6; O2SAT 96
[2024-11-07] VITALS (11 sets, daily range): BP systolic 97–134; BP diastolic 57–91; PULSE 96–107; RESP 16–19; TEMP 97.5–98.7; O2SAT 94–98
[2024-11-07 08:01] LABS: Hematocrit 40.3 % (41.0-53.0); Hemoglobin 13.8 g/dL (13.5-17.5); Mean Corpuscular Hemoglobin 30.1 pg (28.0-32.0); Mean Corpuscular Volume 88.0 fL (80.0-100.0); Nucleated Red Blood Cells % 0.0 %
[2024-11-07 08:03] LABS: Alanine Aminotransferase 18 U/L (7-40); Albumin 4.0 g/dL (3.2-4.8); Alkaline Phosphatase 57 U/L (46-116); Anion Gap 14 (5-15); BUN/Creatinine Ratio 14.0 (10.0-20.0); Bilirubin, Total 0.9 mg/dL (0.2-1.0); Calcium 8.8 mg/dL (8.7-10.4); Carbon Dioxide 21 mmol/L (20-31); Chloride 105 mmol/L (98-107); Potassium 3.9 mmol/L (3.5-5.1); Sodium 140 mmol/L (136-145); Total Protein 6.8 g/dL (5.7-8.2)
[2024-11-07 08:05] LABS: Blood Urea Nitrogen 8 mg/dL (9-23); Glucose 178 mg/dL (74-106)
--- NOTE | 2024-11-07 10:42 | DVHPN2 ---
Progress Note Date Seen: Nov 07, 2024 Medical Necessity Reason Pt with a Central, PICC or Fol: No Subjective Patient reports: No new complaints Review of Systems: HEENT:Normal, CVS:Normal, RESPIRATORY:Normal, GI:Normal, :Normal, MSK:Normal, NEURO:Normal Objective vital signs Vital Sign Date Time Temp Pulse Resp B/P (MAP) Pulse Ox O2 Delivery O2 Flow Rate FiO2 11/07/24 09:00 98.6 97 19 108/69 (82) 94 98.6 11/07/24 03:16 Room Air* 0 21 Total Intake and Output 11/06/24 11/06/24 11/07/24 15:00 23:00 07:00 Intake Total 50 ml 100 ml 0 ml Balance 50 ml 100 ml 0 ml medications Current Medications Medications Dose Ordered Sig/Raj Route Start Time Stop Time Status Last Admin Dose Admin Acetaminophen/ Hydrocodone Bitart 1 tab Q4HP PRN PO 11/06/24 08:15 11/07/24 05:23 1 TAB Ondansetron HCl 4 mg Q4HP PRN IV 11/06/24 08:15 Docusate Sodium 100 mg BIDPRN PRN PO 11/06/24 08:15 Acetaminophen 650 mg Q6HP PRN PO 11/06/24 08:15 Morphine Sulfate 2 mg Q4HPRN PRN IV 11/06/24 08:15 Metronidazole 100 ml @ 100 mls/hr Q8HR IV 11/06/24 14:00 11/07/24 05:16 100 MLS/HR Ceftriaxone Sodium 50 ml @ 100 mls/hr DAILY@09 IV 11/06/24 09:00 11/07/24 10:07 100 MLS/HR Sodium Chloride 1,000 ml @ 100 mls/hr Q10H IV 11/06/24 08:15 11/07/24 10:07 100 MLS/HR Diagnostic Test (Pha) 1 strip Q6HR 11/06/24 12:00 11/07/24 05:24 1 STRIP Insulin Human Regular Q6HR SC 11/06/24 12:00 11/07/24 05:46 3 UNITS Dextrose 50 ml UD PRN IV 11/06/24 11:45 Examination: GENERAL:Normal, HEENT:Normal, NECK:Normal, LUNGS:Normal, CVS:Normal, ABDOMEN:Normal, ABDOMEN:Abnormal (right lower abd tenderness), MSK:Normal, SKIN:Normal, NEURO:Normal, :Normal laboratory and microbiology Laboratory Tests 11/07/24 07:28 Test 11/07/24 07:28 Range/Units Serum Glucose 178 H 74-106 mg/dL Problem List/Assessment/Plan Problem List/Assessment/Plan #1 ? acute appy with sepsis: ivf, iv antibiotics, surg eval #2 dm: uncontrolled, ssi #3 obesity Plan discussed with: Patient My Orders My Orders Orders - MARELY CAVAZOS MD Procedure Category Date Status Time Glucose Blood PHA 11/06/24 In Process (Accu-Chek Comfort 12:00 Insulin R (Human) PHA 11/06/24 In Process (Insulin R) 12:00 Dextrose 50% Syringe PHA 11/06/24 In Process 11:45 Right Lower Quad US 11/06/24 Resulted 11:45 Date of Service: Nov 07, 2024 Billing Provider: MARELY CAVAZOS MD Common Visit Codes: [id number] INP/OBS CARE(HIGH) MARELY CAVAZOS MD Nov 07, 2024 10:42
[2024-11-07] MEDS: ACCU-CHEK COMFORT CURVE STRIP VI ONE (12:00)
[2024-11-07] MEDS: KETOROLAC TROMETH 30 MG/ML 1ML VIAL IV ONE (12:00)
[2024-11-07] MEDS ORDERED: METOCLOPRAMIDE HCL 5MG/ml INJ 2ml VIAL IV PRN (12:00)
[2024-11-07] MEDS ORDERED: MORPHINE SULFATE 4 MG/ML SYR/VIAL IV PRN (12:00)
[2024-11-07] MEDS ORDERED: HYDROmorphone HCL 2 MG/ML VL/or syr IV PRN ×2 (12:00)
[2024-11-07] MEDS ORDERED: HYDROmorphone HCL 2 MG/ML VL/or syr ONE (12:01)
[2024-11-07] MEDS ORDERED: LIDOCAINE HCL 2% TOP JELLY 5ML TOP ONE (12:01)
[2024-11-07] MEDS ORDERED: KETAMINE 50mg/ML 1ml syringe ONE (12:01)
[2024-11-07] MEDS ORDERED: NEOSTIGMINE 1 MG/ML INJ (10mg/10ML VIAL) ONE (12:01)
[2024-11-07] MEDS ORDERED: ONDANSETRON HCL 4 MG/2 ML VIAL ONE (12:01)
[2024-11-07] MEDS ORDERED: MIDAZOLAM HCL 2MG/2ML 2ml VIAL (1mg/ml) ONE (12:01)
[2024-11-07] MEDS ORDERED: fentaNYL CITRATE 100 MCG/2 ML VL ONE ×2 (12:01→13:29)
[2024-11-07] MEDS ORDERED: ROCURONIUM 10MG/ML 10ML VIAL IV ONE (12:01)
[2024-11-07] MEDS ORDERED: PROPOFOL 10 MG/ML 20 ML IV ONE (12:01)
[2024-11-07] MEDS ORDERED: GLYCOPYRROLATE 0.2 MG/ML 1ML VIAL ONE (12:01)
[2024-11-07] MEDS ORDERED: LIDOCAINE 1% INJ PF 5ML AMP ONE (12:01)
[2024-11-07] MEDS ORDERED: SODIUM CHLORIDE LOCK 10 ML ONE (12:01)
--- NOTE | 2024-11-07 12:26 | DVHPN2 ---
Progress Note Date Seen: Nov 07, 2024 Medical Necessity Reason Pt with a Central, PICC or Fol: No Objective vital signs Vital Sign Date Time Temp Pulse Resp B/P (MAP) Pulse Ox O2 Delivery O2 Flow Rate FiO2 11/07/24 09:00 98.6 97 19 108/69 (82) 94 98.6 11/07/24 03:16 Room Air* 0 21 Total Intake and Output 11/06/24 11/06/24 11/07/24 15:00 23:00 07:00 Intake Total 50 ml 100 ml 0 ml Balance 50 ml 100 ml 0 ml medications Current Medications Medications Dose Ordered Sig/Raj Route Start Time Stop Time Status Last Admin Dose Admin Acetaminophen/ Hydrocodone Bitart 1 tab Q4HP PRN PO 11/06/24 08:15 11/07/24 05:23 1 TAB Ondansetron HCl 4 mg Q4HP PRN IV 11/06/24 08:15 Docusate Sodium 100 mg BIDPRN PRN PO 11/06/24 08:15 Acetaminophen 650 mg Q6HP PRN PO 11/06/24 08:15 Morphine Sulfate 2 mg Q4HPRN PRN IV 11/06/24 08:15 Metronidazole 100 ml @ 100 mls/hr Q8HR IV 11/06/24 14:00 11/07/24 05:16 100 MLS/HR Ceftriaxone Sodium 50 ml @ 100 mls/hr DAILY@09 IV 11/06/24 09:00 11/07/24 10:07 100 MLS/HR Sodium Chloride 1,000 ml @ 100 mls/hr Q10H IV 11/06/24 08:15 11/07/24 10:07 100 MLS/HR Diagnostic Test (Pha) 1 strip Q6HR 11/06/24 12:00 11/07/24 05:24 1 STRIP Insulin Human Regular Q6HR SC 11/06/24 12:00 11/07/24 05:46 3 UNITS Dextrose 50 ml UD PRN IV 11/06/24 11:45 Hydromorphone HCl 0.5 mg Q10M PRN IV 11/07/24 12:00 11/07/24 12:41 Morphine Sulfate 2 mg Q4H PRN IV 11/07/24 12:00 11/07/24 16:01 Hydromorphone HCl 0.25 mg Q10M PRN IV 11/07/24 12:00 11/07/24 12:31 Morphine Sulfate 1 mg Q30M PRN IV 11/07/24 12:41 11/07/24 14:42 laboratory and microbiology Laboratory Tests 11/07/24 07:28 Test 11/07/24 07:28 Range/Units Serum Glucose 178 H 74-106 mg/dL Problem List/Assessment/Plan Problem List/Assessment/Plan 11/07/24 persistent right lower quadrant pain, now very tender with rebound tenderness, lapafrosocpic possibly open appendectomy, risks and complications explained in detail Plan discussed with: Patient MK PINEDA MD Nov 07, 2024 12:26
[2024-11-07] MEDS ORDERED: MORPHINE SULFATE INJ 2 MG/ml SYRG IV PRN (12:41)
[2024-11-07] MEDS ORDERED: SUGAMMADEX 200mg/2ml Vial (100MG/ML) IV ONE (13:26)
[2024-11-07] MEDS: BUPIVACAINE HCL 0.25% P/F 10 ML VIAL ONE (13:28)
[2024-11-07] MEDS: Lidocaine/Epinephrine 1%-1:100,000 30ML VL ONE (13:28)
--- NOTE | 2024-11-07 13:49 | DVHOP ---
DATE OF SURGERY: 11/07/2024 PREOPERATIVE DIAGNOSIS: Acute appendicitis. POSTOPERATIVE DIAGNOSIS: Acute suppurative appendicitis with rupture. SURGEON: Gerry Hall MD MACHINE CHAIN MAKER: Jose Luis Neri NP ANESTHESIA: General endotracheal. ANESTHESIOLOGIST: Dr. Jacob. PROCEDURES: Laparoscopy, laparoscopic appendectomy. DESCRIPTION OF PROCEDURE: Under general endotracheal anesthesia with the patient's skin prepped and draped, a supraumbilical incision was made and Veress needle inserted into the peritoneal cavity by the hanging drop technique in order to establish pneumoperitoneum to 15 mmHg pressure by insufflation with carbon dioxide. With the abdomen fully distended, the needle was removed and replaced with a 5 mm trocar port through which a 0-degree viewing laparoscope was inserted and under direct vision, additional 5 and 10 mm ports were inserted through the midline abdominal wall. Instrumentation was introduced and laparoscopy was performed. There was evidence of ruptured appendicitis with periappendiceal purulence. This was aspirated and sent for cultures and sensitivities. The appendix was acutely inflamed. It was attached to the surrounding structures from where it was lysed sharply and bluntly and placed on tension so as to be able to trace to the confluence with the cecum. At the base of the appendix, at the cecal confluence, it was cross-clamped and divided with an Endo ADALGISA stapler equipped with vascular sergey. Following 3 applications of the Endo ADALGISA secondary to the fat and inflammatory tissue as well as secondary to the thickness of the appendix, the appendix and mesoappendix were placed into a specimen extraction bag and retrieved from the peritoneal cavity through the infraumbilical 10-mm port site. Subsequently, the right lower quadrant was irrigated. Irrigant was aspirated. Hemostasis was meticulously investigated and found to be complete. At the termination of the operation, there was no evidence of bleeding from either the appendicectomy site or from the port sites. A 10-mm Navin-López drain was placed into the right lower quadrant exteriorized through the supraumbilical 5-mm port site and secured with a 2-0 nylon suture. The drain was left in the area of maximal inflammation and infection in the right lower quadrant. Instrumentation was then withdrawn. Pneumoperitoneum was evacuated. Fascial defect closed using #0 Vicryl. The wounds were approximated using Monocryl sutures, Dermabond, glue, and Steri-Strips. The patient left the operating room following an accurate needle and sponge counts. His sister, Tian, was thoroughly informed on [phone]. MD GISSEL Holland/ESTEFANY TID: [id number] RECEIPT: [id number]
[2024-11-07] MEDS: ONDANSETRON HCL 4 MG/2 ML VIAL IV PRN (18:06)
[2024-11-07] MEDS: MORPHINE SULFATE INJ 2 MG/ml SYRG IV PRN (18:07)
[2024-11-07] MEDS: DOCUSATE SOD 100 MG CAP PO PRN (23:51)
[2024-11-08] VITALS (8 sets, daily range): BP systolic 109–122; BP diastolic 66–79; PULSE 96–103; RESP 16–19; TEMP 97–99.1; O2SAT 94–99
[2024-11-08 05:33] LABS: Hematocrit 37.6 % (41.0-53.0); Hemoglobin 13.1 g/dL (13.5-17.5); Mean Corpuscular Hemoglobin 30.5 pg (28.0-32.0); Mean Corpuscular Volume 87.8 fL (80.0-100.0); Nucleated Red Blood Cells % 0.0 %
[2024-11-08 06:13] LABS: Anion Gap 13 (5-15); Carbon Dioxide 18 mmol/L (20-31)
[2024-11-08 06:15] LABS: Chloride 107 mmol/L (98-107); Potassium 3.8 mmol/L (3.5-5.1); Sodium 138 mmol/L (136-145)
[2024-11-08 06:18] LABS: BUN/Creatinine Ratio 10.7 (10.0-20.0)
[2024-11-08 06:20] LABS: Blood Urea Nitrogen 6 mg/dL (9-23); Calcium 8.3 mg/dL (8.7-10.4); Glucose 160 mg/dL (74-106)
[2024-11-08] MEDS: PANTOPRAZOLE 40 MG/10 ML VIAL INJ IV SCH (09:46)
[2024-11-08] MEDS ORDERED: SUCCINYLCHOLINE CHLORIDE 20 MG/ML 10ML VIAL IV ONE (14:44)
--- NOTE | 2024-11-08 15:40 | DVHPN2 ---
Progress Note Date Seen: Nov 08, 2024 Medical Necessity Reason Pt with a Central, PICC or Fol: No Subjective Patient reports: No new complaints Review of Systems: HEENT:Normal, CVS:Normal, RESPIRATORY:Normal, GI:Normal, :Normal, MSK:Normal, NEURO:Normal Objective vital signs Vital Sign Date Time Temp Pulse Resp B/P (MAP) Pulse Ox O2 Delivery O2 Flow Rate FiO2 11/08/24 12:55 97.4 97 19 118/76 (90) 96 97.4 11/08/24 08:00 Room Air* 0 21 Total Intake and Output 11/07/24 11/07/24 11/08/24 15:00 23:00 07:00 Intake Total 150 ml 400 ml 990 ml Output Total 415 ml 50 ml 35 ml Balance -265 ml 350 ml 955 ml medications Current Medications Medications Dose Ordered Sig/Raj Route Start Time Stop Time Status Last Admin Dose Admin Acetaminophen/ Hydrocodone Bitart 1 tab Q4HP PRN PO 11/06/24 08:15 11/08/24 12:30 1 TAB Ondansetron HCl 4 mg Q4HP PRN IV 11/06/24 08:15 11/07/24 18:06 4 MG Docusate Sodium 100 mg BIDPRN PRN PO 11/06/24 08:15 11/08/24 09:46 100 MG Acetaminophen 650 mg Q6HP PRN PO 11/06/24 08:15 Morphine Sulfate 2 mg Q4HPRN PRN IV 11/06/24 08:15 11/07/24 18:07 2 MG Metronidazole 100 ml @ 100 mls/hr Q8HR IV 11/06/24 14:00 11/08/24 14:43 100 MLS/HR Ceftriaxone Sodium 50 ml @ 100 mls/hr DAILY@09 IV 11/06/24 09:00 11/08/24 09:46 100 MLS/HR Sodium Chloride 1,000 ml @ 100 mls/hr Q10H IV 11/06/24 08:15 11/08/24 09:46 100 MLS/HR Diagnostic Test (Pha) 1 strip Q6HR 11/06/24 12:00 11/08/24 12:20 1 STRIP Insulin Human Regular Q6HR SC 11/06/24 12:00 11/08/24 12:27 3 UNITS Dextrose 50 ml UD PRN IV 11/06/24 11:45 Pantoprazole Sodium 40 mg DAILY IV 11/08/24 10:00 11/08/24 09:46 40 MG Examination: GENERAL:Normal, HEENT:Normal, NECK:Normal, LUNGS:Normal, CVS:Normal, ABDOMEN:Normal, ABDOMEN:Abnormal (ananda drain), MSK:Normal, SKIN:Normal, NEURO:Normal, :Normal laboratory and microbiology Laboratory Tests 11/08/24 04:43 Test 11/08/24 04:43 Range/Units Serum Glucose 160 H 74-106 mg/dL Microbiology Date/Time Source Procedure Growth Status 11/07/24 13:09 Peritoneal Fluid Gram Stain - Final Resulted 11/07/24 13:09 Peritoneal Fluid Anaerobic Culture - Preliminary Resulted 11/07/24 13:09 Peritoneal Fluid Aerobic Culture Pending Resulted Problem List/Assessment/Plan Problem List/Assessment/Plan #1 perforaged acute appy with sepsis s/p surg: ivf, iv antibiotics, clear liquid diet #2 dm: uncontrolled, ssi #3 obesity Plan discussed with: Patient Date of Service: Nov 08, 2024 Billing Provider: MARELY CAVAZOS MD Common Visit Codes: [id number] INP/OBS CARE(HIGH) MARELY CAVAZOS MD Nov 08, 2024 15:40
--- NOTE | 2024-11-08 16:30 | DVHPN2 ---
Progress Note Date Seen: Nov 08, 2024 Medical Necessity Reason Pt with a Central, PICC or Fol: No Objective vital signs Vital Sign Date Time Temp Pulse Resp B/P (MAP) Pulse Ox O2 Delivery O2 Flow Rate FiO2 11/08/24 12:55 97.4 97 19 118/76 (90) 96 97.4 11/08/24 08:00 Room Air* 0 21 Total Intake and Output 11/07/24 11/07/24 11/08/24 15:00 23:00 07:00 Intake Total 150 ml 400 ml 990 ml Output Total 415 ml 50 ml 35 ml Balance -265 ml 350 ml 955 ml medications Current Medications Medications Dose Ordered Sig/Raj Route Start Time Stop Time Status Last Admin Dose Admin Acetaminophen/ Hydrocodone Bitart 1 tab Q4HP PRN PO 11/06/24 08:15 11/08/24 12:30 1 TAB Ondansetron HCl 4 mg Q4HP PRN IV 11/06/24 08:15 11/07/24 18:06 4 MG Docusate Sodium 100 mg BIDPRN PRN PO 11/06/24 08:15 11/08/24 09:46 100 MG Acetaminophen 650 mg Q6HP PRN PO 11/06/24 08:15 Morphine Sulfate 2 mg Q4HPRN PRN IV 11/06/24 08:15 11/07/24 18:07 2 MG Metronidazole 100 ml @ 100 mls/hr Q8HR IV 11/06/24 14:00 11/08/24 14:43 100 MLS/HR Ceftriaxone Sodium 50 ml @ 100 mls/hr DAILY@09 IV 11/06/24 09:00 11/08/24 09:46 100 MLS/HR Sodium Chloride 1,000 ml @ 100 mls/hr Q10H IV 11/06/24 08:15 11/08/24 09:46 100 MLS/HR Diagnostic Test (Pha) 1 strip Q6HR 11/06/24 12:00 11/08/24 12:20 1 STRIP Insulin Human Regular Q6HR SC 11/06/24 12:00 11/08/24 12:27 3 UNITS Dextrose 50 ml UD PRN IV 11/06/24 11:45 Pantoprazole Sodium 40 mg DAILY IV 11/08/24 10:00 11/08/24 09:46 40 MG laboratory and microbiology Laboratory Tests 11/08/24 04:43 Test 11/08/24 04:43 Range/Units Serum Glucose 160 H 74-106 mg/dL Problem List/Assessment/Plan Problem List/Assessment/Plan 11/07/24 persistent right lower quadrant pain, now very tender with rebound tenderness, lapafrosocpic possibly open appendectomy, risks and complications explained in detail 11/08/24 doing well, wounds ok, abdomen appropriately tender, will advance diet, cleared for discharge in AM Plan discussed with: Patient MK PINEDA MD Nov 08, 2024 16:30
[2024-11-09 01:00] VITALS: BP 114/76; PULSE 92; RESP 18; TEMP 97.6; O2SAT 97
[2024-11-09 05:00] VITALS: BP 110/78; PULSE 99; RESP 18; TEMP 98.1; O2SAT 97
--- NOTE | 2024-11-09 07:14 | DVHPN2 ---
Subjective Date Seen: Nov 09, 2024 Post op day Post op day: 3 Patient reports: No new complaints General: Normal HNT: Normal Cardiovascular: Normal Respiratory: Normal Gastrointestinal: Normal Genitourinary: Normal Musculoskeletal: Normal Neurological: Normal Objective Vitals Vital Sign Date Time Temp Pulse Resp B/P (MAP) Pulse Ox O2 Delivery O2 Flow Rate FiO2 11/09/24 05:00 98.1 99 18 110/78 (89) 97 98.1 11/08/24 20:00 Room Air* 0 21 Total Intake and Output 11/08/24 11/08/24 11/09/24 15:00 23:00 07:00 Intake Total 1050 ml 1800 ml 850 ml Output Total 25 ml Balance 1050 ml 1775 ml 850 ml Medications Current Medications Medications Dose Ordered Sig/Raj Route Start Time Stop Time Status Last Admin Dose Admin Acetaminophen/ Hydrocodone Bitart 1 tab Q4HP PRN PO 11/06/24 08:15 11/09/24 03:22 1 TAB Ondansetron HCl 4 mg Q4HP PRN IV 11/06/24 08:15 11/07/24 18:06 4 MG Docusate Sodium 100 mg BIDPRN PRN PO 11/06/24 08:15 11/08/24 09:46 100 MG Acetaminophen 650 mg Q6HP PRN PO 11/06/24 08:15 Morphine Sulfate 2 mg Q4HPRN PRN IV 11/06/24 08:15 11/07/24 18:07 2 MG Metronidazole 100 ml @ 100 mls/hr Q8HR IV 11/06/24 14:00 11/09/24 04:56 100 MLS/HR Ceftriaxone Sodium 50 ml @ 100 mls/hr DAILY@09 IV 11/06/24 09:00 11/08/24 09:46 100 MLS/HR Sodium Chloride 1,000 ml @ 100 mls/hr Q10H IV 11/06/24 08:15 11/09/24 06:15 100 MLS/HR Diagnostic Test (Pha) 1 strip Q6HR 11/06/24 12:00 11/09/24 06:00 1 STRIP Insulin Human Regular Q6HR SC 11/06/24 12:00 11/09/24 05:15 3 UNITS Dextrose 50 ml UD PRN IV 11/06/24 11:45 Pantoprazole Sodium 40 mg DAILY IV 11/08/24 10:00 11/08/24 09:46 40 MG General: Normal, Well developed, Obese Head/Eyes: Normal ENT: Normal Neck: Normal, Supple Lungs: Normal Cardiovascular: Normal Abdominal: Normal, Soft Musculoskeletal: Normal Extremities: Normal, No clubbing Skin: Normal, Normal inspection Labs and Microbiology Laboratory Tests 11/08/24 04:43 Test 11/08/24 04:43 Range/Units Serum Glucose 160 H 74-106 mg/dL Ass/Plan Problem List 11/07/24 persistent right lower quadrant pain, now very tender with rebound tenderness, lapafrosocpic possibly open appendectomy, risks and complications explained in detail 11/08/24 doing well, wounds ok, abdomen appropriately tender, will advance diet, cleared for discharge in AM Assessment/Plan no new complaints tolerating diet wounds clean dry and intact abdomen soft, non distended, appropriately tender Plan: ok to discharge per surgery point of view send home with antibiotics follow up in surgery clinic in one week Prognosis: Good Plan discussed with patient, Dr. Hall Visit Coding Surgery Date of Service if different f: Nov 09, 2024 Billing Provider: MK HALL MD Surgery Visit Codes: [id number] INP/OBS CARE(HIGH) ALYSON EDUARDO NP Nov 09, 2024 07:14
[2024-11-09 08:00] VITALS: PULSE 92; RESP 17; O2SAT 96
[2024-11-09 08:05] LABS: Anion Gap 14 (5-15); Sodium 138 mmol/L (136-145)
[2024-11-09] MEDS: ACETAMINOPHEN 325 MG TAB PO PRN (08:08)
[2024-11-09 08:09] LABS: Hematocrit 38.0 % (41.0-53.0); Hemoglobin 13.2 g/dL (13.5-17.5); Mean Corpuscular Hemoglobin 30.5 pg (28.0-32.0); Mean Corpuscular Volume 88.0 fL (80.0-100.0); Nucleated Red Blood Cells % 0.0 %
[2024-11-09 08:10] LABS: Calcium 8.6 mg/dL (8.7-10.4); Carbon Dioxide 17 mmol/L (20-31); Chloride 107 mmol/L (98-107); Potassium 3.1 mmol/L (3.5-5.1)
[2024-11-09 08:13] LABS: BUN/Creatinine Ratio 10.9 (10.0-20.0); Blood Urea Nitrogen < 5 mg/dL (9-23); Glucose 171 mg/dL (74-106)
[2024-11-09 08:55] VITALS: BP 120/76; PULSE 92; RESP 18; TEMP 98.6; O2SAT 96
[2024-11-09 12:40] VITALS: BP 110/71; PULSE 90; RESP 18; TEMP 98.4; O2SAT 97
[2024-11-09] MEDS ORDERED: AUG875T PO (14:24)
[2024-11-09] MEDS ORDERED: HYDR-4902 PO (14:24)
--- NOTE | 2024-11-09 14:50 | DVHDS2 ---
Discharge Summary Date of Admission Nov 06, 2024 at 08:10 Date of Discharge: Nov 09, 2024 Labs/Diagnostic Data: Laboratory Results Test 11/09/24 12:04 11/09/24 06:41 11/07/24 07:28 11/06/24 08:06 POC Glucose 197 mg/dl (70-106) White Blood Count 9.6 10^3/uL (4.4-10.8) Red Blood Count 4.32 10^6/uL (4.5-5.90) Hemoglobin 13.2 g/dL (13.5-17.5) Hematocrit 38.0 % (41.0-53.0) Mean Corpuscular Volume 88.0 fL (80.0-100.0) Mean Corpuscular Hemoglobin 30.5 pg (28.0-32.0) Mean Corpuscular Hemoglobin Concent 34.7 g/dL (32.0-36.0) Red Cell Distribution Width 13.3 % (11.8-14.3) Platelet Count 250 10^3/uL (140-450) Mean Platelet Volume 8.9 fL (6.9-10.8) Neutrophils (%) (Auto) 75.5 % (37.0-80.0) Lymphocytes (%) (Auto) 15.2 % (10.0-50.0) Monocytes (%) (Auto) 9.0 % (0.0-12.0) Eosinophils (%) (Auto) 0.2 % (0.0-7.0) Basophils (%) (Auto) 0.1 % (0.0-2.0) Neutrophils # (Auto) 7.2 10 ^3/uL (1.6-8.6) Lymphocytes # (Auto) 1.4 10 ^3/uL (0.4-5.4) Monocytes # (Auto) 0.9 10 ^3/uL (0-1.3) Eosinophils # (Auto) 0 10 ^3/uL (0-0.8) Basophils # (Auto) 0 10 ^3/uL (0-0.2) Nucleated Red Blood Cells 0.0 % Sodium Level 138 mmol/L (136-145) Potassium Level 3.1 mmol/L (3.5-5.1) Chloride Level 107 mmol/L (98-107) Carbon Dioxide Level 17 mmol/L (20-31) Anion Gap 14 (5-15) Blood Urea Nitrogen < 5 mg/dL (9-23) Creatinine 0.46 mg/dL (0.700-1.30) Glomerular Filtration Rate Calc 148 mL/min (>90) BUN/Creatinine Ratio 10.9 (10.0-20.0) Serum Glucose 171 mg/dL (74-106) Calcium Level 8.6 mg/dL (8.7-10.4) Total Bilirubin 0.9 mg/dL (0.2-1.0) Aspartate Amino Transferase (AST) 12 U/L (13-40) Alanine Aminotransferase (ALT) 18 U/L (7-40) Alkaline Phosphatase 57 U/L (46-116) Total Protein 6.8 g/dL (5.7-8.2) Albumin 4.0 g/dL (3.2-4.8) Prothrombin Time 11.8 sec (9.3-11.8) Prothrombin Time INR 1.13 (0.9-1.15) Hemoglobin A1c 12.7 % A1C (<5.7) Test 11/05/24 17:40 Urine Color Light-yellow (Yellow) Urine Clarity Clear (Clear) Urine pH 5.5 (5.0-9.0) Urine Specific [place] 1.044 (1.001-1.035) Urine Protein Negative (Negative) Urine Ketones 3+ (Negative) Urine Blood Negative /uL (Negative) Urine Nitrite Negative (Negative) Urine Bilirubin Negative (Negative) Urine Urobilinogen Normal mg/dL (Negative) Urine Leukocyte Esterase Negative /uL (Negative) Urine RBC 5 /hpf (0 - 3) Urine Microscopic WBC 1 /HPF (0-3) Urine Squamous Epithelial Cells Few /hpf (<5) Urine Bacteria None seen /hpf (None Seen) Urine Glucose 4+ mg/dL (Normal) Other Laboratory Tests 11/09/24 06:41 Brief Hx & Hospital Course: 24 yo M admitted for perf appendecitis, s/p appendectomy with ananda drain. cleared by surgery. given iv abx, culture growing gp dariel. dc with augmentin and pain managmenet. surg f/u and dc clinic Condition at Discharge: Good Final Diagnosis/Problems List appendicytis s/p laparascopic appendectomy with ANANDA drain sepsis perforation uncontrolled DM obesity Discharge Disposition: Home Discharge Instruct/Medications Diet: Regular Activity: No Restrictions, As Tolerated Follow Up/Referral: surgery 1 week dc clinic pcp Scheduled Amoxicillin & Pot Clavulanate (Augmentin Tablet), 875 MG PO BID Scheduled PRN Hydrocodone-Acetaminophen (Hydrocodone Bitartrate/AC 5-325 mg), 1 TAB PO Q8HP PRN Discharge Statement: "Patient was advised to return to the ER or call 911 if any headaches, dizziness, shortness of breath, chest pain, abdominal pain, bleeding, fevers, or worsening of medical condition. Patient was counseled about treatment plan, medications, possible side effects, patientverbalized understanding. All questions were answered to the best of my ability. This discharge took greater then 30 minutes in planning, reviewing documentation, counseling the patient, and discussing with other team members." ASSESSMENT ASSESSMENT Assessment appendicytis s/p laparascopic appendectomy with ANANDA drain Date of Service: Nov 09, 2024 Billing Provider: ARCELIA TRAN MD Common Visit Codes: [id number] DISCH DAY >30min ARCELIA TRAN MD Nov 09, 2024 14:50
[2024-11-09 15:09] VITALS: BP 110/71; PULSE 90; RESP 18; TEMP 98.4; O2SAT 97
== END 2024-11-09 15:34 | disposition home or self-care (01) | DRG 710 ==
LOC: ER 17:17 → OVERFLOW 11-06 08:10 → WEST WING 11-07 03:15
PROVIDERS: ADMIT Student in an Organized Health Care Education/Training Program; ATTEND Student in an Organized Health Care Education/Training Program
PROC: 0DTJ4ZZ Resection of Appendix, Percutaneous Endoscopic Approach (ICD-10-PCS; principal; 2024-11-07 12:43)
DX: A41.9 Sepsis, unspecified organism (principal); K35.32 Acute appendicitis with perforation, localized peritonitis, and gangrene, without abscess; N30.90 Cystitis, unspecified without hematuria; E11.65 Type 2 diabetes mellitus with hyperglycemia; E66.9 Obesity, unspecified; K59.00 Constipation, unspecified; Z91.199 Patient's noncompliance with other medical treatment and regimen due to unspecified reason; Z79.899 Other long term (current) drug therapy; Z68.36 Body mass index [BMI] 36.0-36.9, adult
CPT/HCPCS: 36415; 71045; 74176; 76705; 80048; 80053; 81001; 82962; 83036; 85025; 85610; 87070; 87075; 87205; G0378; J0330; J1815; J2250; J2405; J2470; J2543; J2704; J3490